=== PATIENT | male | born 1975 | race Caucasian/White ===

== ENCOUNTER → 2023-06-12 | Emergency (ER) | payer OTHER ==
[~2023-06-12] VITALS: Ht 182.9 cm; Wt 96.2 kg
[~2023-06-12] MED LIST: PHENYLEPHRINE 0.5% NASAL SPRAY 15 ML BOTTLE NS ONE
--- NOTE | 2023-06-12 03:35 | NUR ---
lt nostril bleeding x few days, denies trauma, not on any blood thinners. PATIENT STATES HAPPENED ONCE BEFORE IN APRIL. FIRST TIME SINCE. NORMALLY KEEPS NOSE MOIST WITH SALINE SPRAY.
--- NOTE | 2023-06-12 04:00 | NUR ---
APPLIED NEOSYNEPHRINE ON GAUZE AND PLACED IN NOSTRIL TO AID IN BLOOD VESSEL CONSTRICTION. CONTINUOUSLY MONITORING.
--- NOTE | 2023-06-12 04:30 | NUR ---
FOUND SOME DRIBBLE OF BLOOD MOST LIKELY FROM RESIDUAL BLOOD ACCUMULATION. BLOOD FLOW HAS SEIZED. AT THIS TIME.
--- NOTE | 2023-06-12 04:45 | NUR ---
Patient discharged to home in stable condition. Written and verbal after care instructions given. Patient verbalizes understanding of instruction.
[2023-06-12 04:46] VITALS: BP 115/78; TEMP 98.5; O2SAT 98
== END | disposition home or self-care (01) ==
LOC: ER 02:44
DX: R04.0 Epistaxis (principal)

== ENCOUNTER 2024-10-28 14:26 | Inpatient (IN) | payer OTHER ==
[~2024-10-28] VITALS: Ht 182.9 cm; Wt 96.9 kg
[2024-10-28 10:40] VITALS: BP 131/71; TEMP 98.1; O2SAT 96
[2024-10-28] MEDS ORDERED: IOHEXOL-350 100 ML VIAL IV ONE (14:46)
[2024-10-28 14:55] LABS: BASOPHILS # (AUTO) 0.1 K/uL (0.0-0.2); EOSINOPHILS # (AUTO) 0.3 K/uL (0.0-0.7); EOSINOPHILS % (AUTO) 3.2 % (0.0-6.0); HEMATOCRIT 41 % (39-51); HEMOGLOBIN 14.1 g/dL (13.5-17.5); LYMPHOCYTES # (AUTO) 2.8 K/uL (0.8-4.8); LYMPHOCYTES % (AUTO) 34.4 % (20.0-44.0); MEAN CORPUSCULAR HEMOGLOBIN 31 PG (26.0-33.0); MEAN CORPUSCULAR HGB CONC 35 g/dl (31.0-36.0); MEAN CORPUSCULAR VOLUME 90 fL (80-96); MONOCYTES # (AUTO) 0.9 K/uL (0.1-1.30); MONOCYTES % (AUTO) 11.3 % (2.0-12.0); NEUTROPHILS # (AUTO) 4.1 K/uL (1.8-8.9); NEUTROPHILS % (AUTO) 50.1 % (43.0-81.0); PLATELET COUNT (AUTO) 309 K/uL (150-450); RED BLOOD CELL COUNT(AUTO) 4.55 MIL/uL (4.5-6.0); WHITE BLOOD COUNT (AUTO) 8.3 K/uL (4.3-11.0)
[2024-10-28 15:04] LABS: CALCIUM, SERUM 8.8 mg/dL (8.5-10.1); CARBON DIOXIDE 28 mmol/L (21-32); CHLORIDE 105 mmol/L (98-107); CREATININE 0.9 mg/dL (0.6-1.3); GLUCOSE 90 mg/dL (74-106); POTASSIUM 3.9 mmol/L (3.5-5.1); SODIUM SERUM 140 mmol/L (136-145); UREA NITROGEN, BLOOD 15 mg/dL (7-18)
[2024-10-28 15:14] LABS: INR 0.97 (0.91-1.10); PARTIAL THROMBOPLASTIN TIME 25.1 SEC (24.3-34.3); PROTHROMBIN TIME 10.3 SECS (9.2-11.1)
[2024-10-28] MEDS ORDERED: diphenhydrAMINE HCL 50 MG/ML VIAL ONE (17:17)
[2024-10-28] MEDS ORDERED: PROCHLORPERAZINE EDISYLATE 10 MG/2 ML VIAL ONE ×2 (17:18→17:19)
[2024-10-28] MEDS ORDERED: ASPIRIN EC 325 MG TABLET.DR PO ONE (17:18)
[2024-10-28] MEDS ORDERED: ACET-73 PO (17:23)
[2024-10-28] MEDS ORDERED: FENO145T21 PO (17:23)
[2024-10-28] MEDS: diphenhydrAMINE HCL 50 MG/ML VIAL IV ONE (17:44)
[2024-10-28] MEDS: IV NS 0.9% 1,000 ML BAG IV ONE (17:44)
[2024-10-28] MEDS: ASPIRIN EC 325 MG TABLET.DR PO ONE (17:45)
[2024-10-28] MEDS: PROCHLORPERAZINE EDISYLATE 10 MG/2 ML VIAL IVP ONE (17:46)
[2024-10-28 18:20] LABS: APPEARANCE,URINE CLEAR (CLEAR); BILIRUBIN,URINE NEGATIVE (NEGATIVE); BLOOD, URINE NEGATIVE Ery/uL (NEGATIVE); COLOR,URINE YELLOW (YELLOW); KETONES,URINE NEGATIVE (NEGATIVE); LEUKOCYTE ESTERASE ,URINE NEGATIVE (NEGATIVE); NITRITE, URINE NEGATIVE (NEGATIVE); PH,URINE 6.5 (5.0-8.0); PROTEIN,URINE NEGATIVE (NEGATIVE); UGLUCOSE NEGATIVE (NEGATIVE); UROBILINOGEN,URINE 0.2 EU/dL (0.2)
[2024-10-28] MEDS ORDERED: ONDANSETRON HCL/PF 4 MG/2 ML VIAL IVP PRN (20:30)
[2024-10-28] MEDS ORDERED: Z GUARD REMEDY 4 OZ OINT TP PRN (20:30)
[2024-10-28] MEDS ORDERED: ACETAMINOPHEN ES 500 MG TABLET PO PRN (20:30)
[2024-10-28 22:19] VITALS: O2SAT 97
[2024-10-29] VITALS: BP 128/71; TEMP 97.7; O2SAT 97
[2024-10-29 04:00] VITALS: BP 134/71; TEMP 98.5; O2SAT 98
[2024-10-29] MEDS: ACETAMINOPHEN 325 MG TABLET PO PRN (05:43)
[2024-10-29 07:03] LABS: BASOPHILS % (AUTO) 0.5 % (0.0-2.0); EOSINOPHILS # (AUTO) 0.3 K/uL (0.0-0.7); EOSINOPHILS % (AUTO) 3.8 % (0.0-6.0); HEMATOCRIT 40 % (39-51); HEMOGLOBIN 14.1 g/dL (13.5-17.5); LYMPHOCYTES # (AUTO) 2.3 K/uL (0.8-4.8); LYMPHOCYTES % (AUTO) 27.6 % (20.0-44.0); MEAN CORPUSCULAR HEMOGLOBIN 31 PG (26.0-33.0); MEAN CORPUSCULAR HGB CONC 35 g/dl (31.0-36.0); MEAN CORPUSCULAR VOLUME 89 fL (80-96); MONOCYTES # (AUTO) 0.8 K/uL (0.1-1.30); MONOCYTES % (AUTO) 9.2 % (2.0-12.0); NEUTROPHILS % (AUTO) 58.9 % (43.0-81.0); PLATELET COUNT (AUTO) 286 K/uL (150-450); RED BLOOD CELL COUNT(AUTO) 4.52 MIL/uL (4.5-6.0); RED CELL DISTRIBUTION WIDTH 12.8 % (11.5-15.0); WHITE BLOOD COUNT (AUTO) 8.5 K/uL (4.3-11.0)
[2024-10-29 07:28] LABS: CALCIUM, SERUM 9.2 mg/dL (8.5-10.1); CREATININE 0.9 mg/dL (0.6-1.3); PHOSPHORUS 4.2 mg/dL (2.5-4.9)
[2024-10-29 08:00] VITALS: BP 141/77; TEMP 97.9; O2SAT 96
[2024-10-29] MEDS: ASPIRIN EC 81 MG TABLET.DR PO SCH (08:28)
[2024-10-29] MEDS: FENOFIBRATE NANOCRYS (145 MG) 145 MG TABLET PO SCH (08:28)
[2024-10-29] MEDS: IBUPROFEN 600 MG TABLET PO PRN (15:13)
[2024-10-29 16:00] VITALS: BP_SYST 17; TEMP 98.1; O2SAT 98
[2024-10-29 16:12] VITALS: TEMP 98.1
== END 2024-10-29 18:58 | disposition home or self-care (01) | DRG 69 ==
LOC: ER 14:47 → TELE 21:10
PROVIDERS: ADMIT Nurse Practitioner Acute Care; ATTEND Nurse Practitioner Acute Care
DX: G45.9 Transient cerebral ischemic attack, unspecified (principal); M50.022 Cervical disc disorder at C5-C6 level with myelopathy; R20.2 Paresthesia of skin; R29.701 NIHSS score 1; Z82.0 Family history of epilepsy and other diseases of the nervous system; G43.809 Other migraine, not intractable, without status migrainosus; M50.122 Cervical disc disorder at C5-C6 level with radiculopathy; Z79.899 Other long term (current) drug therapy; E78.5 Hyperlipidemia, unspecified
CPT/HCPCS: 36415; 70450-TC; 70496-TC; 70498-TC; 70551-TC; 71045-TC; 80048-TC; 80061-TC; 82962-TC; 83735-TC; 84100-TC; 84484-TC; 85025-TC; 85652-TC; 85730-TC; 97112-TC; 97116-TC; 97530-TC; G0378; J0780; J1200; J7030; Q9967

== ENCOUNTER 2024-12-29 09:29 | Emergency (ER) | payer OTHER ==
[~2024-12-29] VITALS: Ht 188 cm; Wt 94.8 kg
[~2024-12-29 09:29] MED LIST changes: +ACET-73 PO; +FENO145T21 PO; -PHENYLEPHRINE 0.5% NASAL SPRAY 15 ML BOTTLE NS ONE
[2024-12-29] MEDS ORDERED: EPINEPHRINE (1:1000) 1 MG/ML AMPUL ONE (09:53)
[2024-12-29] MEDS ORDERED: methylPREDNISolone SOD SUCC 125 MG/2ML VIAL ONE (09:53)
[2024-12-29] MEDS ORDERED: diphenhydrAMINE HCL 50 MG/ML VIAL ONE (09:53)
[2024-12-29] MEDS ORDERED: FAMOTIDINE/PF INJ 20 MG/2 ML VIAL IV ONE (09:53)
[2024-12-29] MEDS: IV NS 0.9% 1,000 ML BAG IV ONE (09:59)
[2024-12-29] MEDS: diphenhydrAMINE HCL 50 MG/ML VIAL IV ONE (10:00)
[2024-12-29] MEDS: methylPREDNISolone SOD SUCC 125 MG/2ML VIAL IV ONE (10:00)
[2024-12-29] MEDS: TRANEXAMIC ACID 1,000 MG in IV NS 0.9% 100 ML IV ONE (10:00)
[2024-12-29] MEDS: EPINEPHRINE (1:1000) 1 MG/ML AMPUL SUBCUT ONE (10:01)
[2024-12-29] MEDS: FAMOTIDINE/PF INJ 20 MG/2 ML VIAL IV ONE (10:05)
[2024-12-29] MEDS ORDERED: PRED20TA PO (10:10)
[2024-12-29] MEDS ORDERED: EPIN0.3P3 IM (10:10)
[2024-12-29] MEDS ORDERED: DIPH25CA83 PO (10:10)
[2024-12-29] MEDS ORDERED: FAMO-131 PO (10:10)
[2024-12-29 11:40] VITALS: BP 129/81; TEMP 98.2; O2SAT 97
== END 2024-12-29 11:41 | disposition home or self-care (01) ==
LOC: ER 09:43
DX: T78.3XXA Angioneurotic edema, initial encounter (principal); E78.5 Hyperlipidemia, unspecified; Z79.52 Long term (current) use of systemic steroids; Z86.73 Personal history of transient ischemic attack (TIA), and cerebral infarction without residual deficits; R06.02 Shortness of breath; X58.XXXA Exposure to other specified factors, initial encounter
CPT/HCPCS: 99291; 96365; 96375; 96372; J2919; J1200; J0171; J3490; J7030 ×2; A4223